=== PATIENT | male | born 1960 | race African-American/Black ===

== ENCOUNTER 2022-07-07 09:49 | Observation (INO) ==
[2022-07-07] MEDS ORDERED: ASPIRIN 325 MG TABLET PO STA (10:54)
[2022-07-07 11:01] LABS: Basophils # 0.1 10*3/uL (0.0-0.2); Basophils % 1.8 % (0.0-0.8); Eosinophils % 0.4 % (0.00-10.9); Hemoglobin 13.2 GM/DL (14.0-18.0); Immature Granulocytes % 0.4 %; Immature Granulocytes Absolute 0.02 #; Lymphocytes # 1.1 10*3/uL (1.4-4.0); Mean Corpuscular HGB Conc 33.8 GM/DL (32-36); Mean Corpuscular Volume 102.1 FL (87-102); Mean Platelet Volume 10.9 FL (9.6-12.0); Monocytes # 0.3 10*3/uL (0.11-0.8); Monocytes % 7.2 % (1.7-12.7); Neutrophils % 66.2 % (38.7-73.9); Platelet Count 206 T/CUMM (130-400); Red Blood Count 3.82 MC/CUMM (3.8-5.5); Red Cell Distribution Width 13.8 % (9.3-17.3); White Blood Count 4.5 T/CUMM (4-12)
[2022-07-07] MEDS: NITROGLYCERIN SL 0.4 MG TABLET SL PRN ×2 (11:06→19:08)
[2022-07-07 11:10] LABS: INR 0.9; PT Patient Result 10.5 SECS (10.1-12.1); Partial Thromboplastin Time 27.3 SECS (23.7-32.9)
[2022-07-07 11:14] LABS: Calcium 9.6 MG/DL (8.5-10.1); Osmolality,Calculated 285.1 MOS/KG (273-304); Potassium 3.5 MMOL/L (3.5-5.1)
[2022-07-07] MEDS ORDERED: ONDANSETRON 4 MG/2 ML VIAL IV STA (12:28)
[2022-07-07] MEDS ORDERED: ACETAMINOPHEN 325 MG TABLET PO PRN (13:19)
[2022-07-07] MEDS ORDERED: ONDANSETRON 4 MG/2 ML VIAL IV PRN (13:19)
[2022-07-07] MEDS ORDERED: LACTATED RINGERS 1,000 ML IV SCH (13:30)
[2022-07-07 13:41] LABS: Folate 10.22 NG/ML (5.38-24.0)
[2022-07-07 13:47] LABS: Risk Ratio 1.91; Thyroid Stimulating Hormone 2.01 uIU/ml (0.358-3.74)
[2022-07-07] MEDS ORDERED: ENOXAPARIN 40 MG/0.4 ML SYRINGE SUBCUT SCH (14:00)
[2022-07-07] MEDS ORDERED: LORazepam 2 MG/1 ML VIAL IV PRN (14:12)
[2022-07-07] MEDS ORDERED: SIMETHICONE CHEW 125 MG TABLET PO PRN (14:19)
[2022-07-07] MEDS ORDERED: POTASSIUM CHLORIDE 20 MEQ TABLET PO ONE (17:04)
[2022-07-07] MEDS ORDERED: MAGNESIUM SULF RIDER 2 GM/50 ML PREMIX IV ONE (17:04)
[2022-07-07] MEDS ORDERED: METOPROLOL TARTRATE 25 MG TABLET PO SCH (21:00)
[2022-07-07] MEDS ORDERED: cloNIDine 0.1 MG TABLET PO SCH (21:00)
[2022-07-07] MEDS: DOCUSATE SODIUM 100 MG CAPSULE PO SCH (21:16)
[2022-07-08 04:23] LABS: Basophils % 0.6 % (0.0-0.8); Eosinophils % 0.6 % (0.00-10.9); Hematocrit 36.8 VOL% (42.0-52.0); Hemoglobin 12.5 GM/DL (14.0-18.0); Immature Granulocytes % 0.6 %; Immature Granulocytes Absolute 0.03 #; Lymphocytes # 1.3 10*3/uL (1.4-4.0); Lymphocytes % 27.6 % (21.2-54.2); Mean Corpuscular Volume 102.2 FL (87-102); Mean Platelet Volume 10.8 FL (9.6-12.0); Monocytes # 0.5 10*3/uL (0.11-0.8); Monocytes % 10.3 % (1.7-12.7); Neutrophils % 60.3 % (38.7-73.9); Platelet Count 168 T/CUMM (130-400); Red Cell Distribution Width 13.6 % (9.3-17.3); White Blood Count 4.9 T/CUMM (4-12)
[2022-07-08 04:41] LABS: Calcium 9.5 MG/DL (8.5-10.1); Osmolality,Calculated 278.4 MOS/KG (273-304); Potassium 3.7 MMOL/L (3.5-5.1)
[2022-07-08] MEDS ORDERED: allopurinoL 300 MG TABLET PO SCH (09:00)
[2022-07-08] MEDS ORDERED: CHLORTHALIDONE 25 MG TABLET PO SCH (09:00)
[2022-07-08] MEDS ORDERED: NEBIVOLOL 10 MG TABLET PO SCH (09:00)
[2022-07-08] MEDS ORDERED: ASPIRIN EC 81 MG TABLET PO SCH (09:00)
[2022-07-08] MEDS ORDERED: ROSUVASTATIN 20 MG TABLET PO SCH (09:00)
[2022-07-08] MEDS ORDERED: VALSARTAN 160 MG TABLET PO SCH (09:00)
[2022-07-08] MEDS ORDERED: MULTIVITAMIN (CENTRUM) TABLET PO SCH (09:00)
[2022-07-08] MEDS ORDERED: THIAMINE 100 MG TABLET PO SCH (09:00)
[2022-07-08] MEDS ORDERED: PANTOPRAZOLE 40 MG TABLET PO SCH (09:00)
[2022-07-08] MEDS ORDERED: FOLIC ACID 1 MG TABLET PO SCH (09:00)
[2022-07-08] MEDS ORDERED: amLODIPine 10 MG TABLET PO SCH (09:00)
[2022-07-08] MEDS: DOCUSATE SODIUM 100 MG CAPSULE PO SCH (09:10)
[2022-07-08 09:24] VITALS: BP 121/70
== END 2022-07-08 09:42 | disposition home or self-care (01) ==
LOC: N.TELES 09:49 → N.ED 09:49 → SUATTDRO 13:18 → N.TELES 14:47
PROVIDERS: ADMIT Internal Medicine; ATTEND Internal Medicine